=== PATIENT | female | born 1945 | race Caucasian/White ===

== ENCOUNTER 2018-07-16 13:46 | Emergency (ER) | payer MEDICARE ==
[2018-07-16 13:53] VITALS: BMI 32.1
[2018-07-16 13:57] VITALS: RESP 16; TEMP 97.8; O2SAT 97
--- NOTE | 2018-07-16 14:15 | ED PDOC ---
Arrival/HPI - General Chief Complaint: Lower Extremity Problem/Injury Time Seen by Provider: 07/16/18 13:47 - History of Present Illness Narrative History of Present Illness (Text): 07/16/18 14:12 A 72 year old female, whose past medical history includes hypertension, who presents to the ED for right leg pain for the past 6 days. Patient reports she was walking down the stairs when she missed a step and twisted her knee. Patient denies any fevers, chills, headache, dizziness, chest pain, shortness of breath, dyspnea on exertion, cough, abdominal pain, nausea, vomiting, diarrhea, back pain, neck pain, urinary/bowel changes, or any other complaints. PMD: Dr. Ledesma. Time/Duration: < week (6 days ago) Symptom Onset: Gradual Symptom Course: Unchanged Activities at Onset: Other (walking down steps) Context: Home Past Medical History - Provider Review Nursing Documentation Reviewed: Yes - Cardiac Hx Hypertension: Yes - Psychiatric Hx Substance Use: No - Surgical History Hx Tubal Ligation: Yes - Anesthesia Hx Anesthesia: Yes Family/Social History - Physician Review Nursing Documentation Reviewed: Yes Family/Social History: Unknown Family HX Smoking Status: Never Smoked Hx Alcohol Use: No Hx Substance Use: No Allergies/Home Meds Allergies/Adverse Reactions: Allergies Penicillins Allergy (Verified 07/16/18 14:09) RASH Review of Systems - Physician Review All systems were reviewed & negative as marked: Yes - Review of Systems Constitutional: absent: Fatigue, Fevers Eyes: absent: Vision Changes ENT: absent: Hearing Changes, Rhinorrhea Respiratory: absent: Cough Cardiovascular: absent: Chest Pain Gastrointestinal: absent: Abdominal Pain, Diarrhea, Nausea, Vomiting Genitourinary Female: absent: Dysuria, Hematuria Musculoskeletal: Other (right leg pain). absent: Back Pain, Neck Pain Skin: absent: Rash Neurological: absent: Headache, Dizziness Endocrine: absent: Diaphoresis Hemo/Lymphatic: absent: Adenopathy Psychiatric: absent: Anxiety, Depression Physical Exam Vital Signs Temp Pulse Resp BP Pulse Ox 07/16/18 13:53 97.8 F 94 H 16 132/88 97 - Systems Exam Lower Extremity: Present: NORMAL PULSES, Tenderness (Upper right knee tenderness), Swelling (Right knee swelling), Neurovascularly Intact Medical Decision Making ED Course and Treatment: 07/16/18 14:19 Impression: A 72 year old female who presents to the ED for right leg pain. Differential Diagnosis included but are not limited to: Right knee strain vs fracture vs bursitis. Plan: -- Motrin -- Right knee C -- Reassess and disposition Prior Visits: Notes and results from previous visits were reviewed. Progress Notes: Xray was negative for fracture. We placed her right knee in a knee braces and gave her crutches with instructions. We gave her follow up with Dr. Mcrae who she will f/u with on Thursday. She was explained all instructions in swiss and swedish by me. She was advised to rest, ice at least 3 times daily and elevated. She was advised to return to the ED with any concerns. - Scribe Statement The provider has reviewed the documentation as recorded by the Dustin Huang Provider Scribe Attestation: All medical record entries made by the Scribe were at my direction and personally dictated by me. I have reviewed the chart and agree that the record accurately reflects my personal performance of the history, physical exam, medical decision making, and the department course for this patient. I have also personally directed, reviewed, and agree with the discharge instructions and disposition. Disposition/Present on Arrival - Present on Arrival Any Indicators Present on Arrival: No History of DVT/PE: No History of Uncontrolled Diabetes: No Urinary Catheter: No History of Decub. Ulcer: No History Surgical Site Infection Following: Obstetrical/Gynecological Surgery - Disposition Have Diagnosis and Disposition been Completed?: Yes Diagnosis: Right knee sprain Disposition: HOME/ ROUTINE Disposition Time: 15:48 Patient Plan: Discharge Condition: IMPROVED Discharge Instructions (ExitCare): How to Use Crutches, Knee Sprain (DC) Additional Instructions: ODILON MULLINS, thank you for letting us take care of you today. Your provider was Gibson De Santiago DO and you were treated for Knee Sprain. The emergency medical care you received today was directed at your acute symptoms. If you were prescribed any medication, please fill it and take as directed. It may take several days for your symptoms to resolve. Return to the Emergency Department if your symptoms worsen, do not improve, or if you have any other problems. Please contact your doctor or call one of the physicians/clinics you have been referred to that are listed on the Patient Visit Information form that is included in your discharge packet. Bring any paperwork you were given at discharge with you along with any medications you are taking to your follow up visit. Our treatment cannot replace ongoing medical care by a primary care provider outside of the emergency department. Thank you for allowing the [facility] team to be part of your care today. If you had an X-Ray or CT scan: A Radiologist will review the ED reading if any change in treatment is needed we will contact you. If you had a blood, urine, or wound culture: It will take several days for the results, if any change in treatment is needed we will contact you. If you had an STI test: It will take 48 hours for the results. Please call after 1 week if you have not heard back. Prescriptions: Ibuprofen [Motrin] 600 mg PO Q6 PRN #30 tab PRN Reason: Pain, Moderate (4-7) Referrals: Jackson Vieira, DO [Staff Provider] - Follow up with primary Forms: [employer] (Polish), WORK NOTE
[2018-07-16 15:28] VITALS: BP 124/65; PULSE 76
--- NOTE | 2018-07-16 15:35 | RAD ---
Date of service: 07/16/2018 PROCEDURE: Right Knee Radiographs. HISTORY: pain right knee s/p twisting knee on Thursday COMPARISON: None. TECHNIQUE: 2 views obtained. FINDINGS: BONES: Normal. No fracture. JOINTS: Normal. No osteoarthritis. JOINT EFFUSION: Small suprapatellar effusion. OTHER FINDINGS: Soft tissue swelling at the level of the patellar tendon. IMPRESSION: Soft tissue swelling as described. Small suprapatellar effusion. No acute osseous findings.
== END 2018-07-16 15:48 | disposition home or self-care (01) ==
LOC: ED 13:46
DX: S83.91XA Sprain of unspecified site of right knee, initial encounter (principal); X50.1XXA Overexertion from prolonged static or awkward postures, initial encounter; Y92.009 Unspecified place in unspecified non-institutional (private) residence as the place of occurrence of the external cause; I10 Essential (primary) hypertension